=== PATIENT | female | born 1960 | race Caucasian/White ===

== ENCOUNTER 2017-01-28 14:26 | Emergency (ER) | payer OTHER ==
[~2017-01-28] VITALS: Ht 160 cm; Wt 47.2 kg
--- NOTE | ~2017-01-28 | CT2 ---
[facility] A Service of [facility] RADIOLOGY TEXT RESULTS PATIENT: SUSANNAH LUCAS LOCATION: [facility] : 60 UNIT #: [id number] AGE: [address]: Jomar Liu MD SEX: F ORDER DR: [id number] [facility] [address] [place], [place] [address] [id number] MR#: [id number] #: [id number] NAME: SUSANNAH LUCAS : 1960 SEX: F STUDY DATE/TIME: 01/28/2017 17:16 UNIT: [facility] ROOM: STUDY DESCRIPTION: CT Abd and Pelv W Cont Attending Physician: Jomar Liu M.D. Ordering Physician: Erica Sylvester M.D. Primary Care Physician: Kusum Jauregui [facility] MEDICAL IMAGING REPORT This report is preliminary unless electronic signature is present EXAM CT abdomen and pelvis with contrast HISTORY Abdominal pain nausea times 5 days and diarrhea, bloody stools. COMPARISON CT abdomen and pelvis 05/12/[address] exam was performed with one or more of the following radiation dose reduction techniques: automatic control, adjustment of mA and/or kV according to patient size, and iterative reconstruction. FINDINGS Axial images performed through the abdomen and pelvis following IV and oral contrast. Multiplanar reconstructed images reviewed at a workstation. ABDOMEN: Lung bases unremarkable. Liver, spleen, and gallbladder appear normal. Pancreas, kidneys and adrenal glands unremarkable. No free air or free fluid. The GI tract remarkable for mild colonic wall thickening involving the right colon, transverse colon and descending colon could reflect mild colitis. Probable involvement of the sigmoid colon as well. No obstruction. Retroperitoneum unremarkable. PELVIS: Bladder unremarkable. The uterus surgically absent. Osseous structures unremarkable. Incidental intramuscular lipoma right anterior pelvis. IMPRESSION Mild diffuse colonic wall thickening involving the entire colon could reflect a pancolitis possibly infectious in etiology. No perforation or obstruction. Patient does demonstrates scattered diverticula but no [facility] A Service [facility] RADIOLOGY TEXT RESULTS PATIENT: SUSANNAH LUCAS LOCATION: [facility] : 60 UNIT #: [id number] AGE: [address]: Jomar Liu MD SEX: F ORDER DR: evidence of diverticulitis. Dictated by... Shubham Aguirre M.D. THIS IS AN ELECTRONICALLY VERIFIED REPORT Shubham Aguirre M.D. at 01/29/2017 1:03 PM LASHAY/elina TD: 01/29/2017 01:02 JOB #: [id number] MEDICAL IMAGING REPORT Page 1 of 1 COPY
[2017-01-28 15:34] LABS: BASOPHIL# 0.1 X10e3 (0-0.3); BASOPHIL% 0.8 % (0-2.5); DIFF IND NO; EOSINOPHIL# 0.1 X10e3 (0-0.7); EOSINOPHIL% 0.6 % (0.0-7.0); HEMATOCRIT 57.2 % (35.0-45.0); HEMOGLOBIN 18.9 gm/dL (12.0-16.0); LYMPHOCYTE# 1.8 X10e3 (1.0-3.5); LYMPHOCYTE% 19.7 % (17.0-45.0); MEAN CELL VOLUME 101.6 FL (83-96); MEAN CORPUSCULAR HEMOGLOBIN 33.6 PG (28-34); MEAN PLATELET VOLUME 9.3 FL (6.5-11.5); MONOCYTE# 0.8 X10e3 (0-1.0); MONOCYTE% 8.4 % (3.0-12.0); NEUTROPHIL# 6.6 X10e3 (1.5-7.1); NEUTROPHIL% 70.5 % (40-75); PLATELET COUNT 264 X10e3 (140-420); RED BLOOD COUNT 5.62 X10e (3.90-5.30); RED CELL DISTRIBUTION WIDTH 15.1 % (11.0-15.5); WHITE BLOOD COUNT 9.3 X10e3 (4.0-10.5)
[2017-01-28 15:50] LABS: ALBUMIN SERUM 4.1 g/dL (3.5-5.0); BILIRUBIN, DIRECT 0.1 mg/dL (0.0-0.2); BILIRUBIN,INDIRECT 0.9 mg/dL (0.0-0.9); BUN/CREATININE RATIO 10.9; CALCIUM SERUM 9.2 mg/dL (8.4-10.2); CREATININE SERUM 1.1 mg/dL (0.6-1.4); GLOM FILT RATE Estimated 56.1 mL/min (>60); POTASSIUM 4.1 mmol/L (3.5-5.1); PROTEIN TOTAL SERUM 7.7 g/dL (6.0-8.3)
[2017-01-28 17:25] LABS: URINE SOURCE CLEAN CATCH
[2017-01-28 17:28] LABS: URINE APPEARANCE CLEAR; URINE BILIRUBIN NEG (NEG); URINE BLOOD NEG (NEG); URINE COLOR YELLOW; URINE GLUCOSE NEG (NEG); URINE KETONE NEG (NEG); URINE LEUKOCYTE ESTERASE NEG (NEG); URINE NITRATE NEG (NEG); URINE PH 7.5 (5-8); URINE PROTEIN NEG (NEG); URINE SPECIFIC GRAVITY 1.018 (1.003-1.035)
[2017-01-28 17:38] LABS: CULTURE INDICATED? NO
== END 2017-01-28 18:56 | disposition home or self-care (01) ==
LOC: CED 14:26
PROVIDERS: Student in an Organized Health Care Education/Training Program
DX: J44.9 Chronic obstructive pulmonary disease, unspecified (principal); G40.909 Epilepsy, unspecified, not intractable, without status epilepticus; Z90.89 Acquired absence of other organs; F17.200 Nicotine dependence, unspecified, uncomplicated; K52.9 Noninfective gastroenteritis and colitis, unspecified; Z88.5 Allergy status to narcotic agent; Z91.02 Food additives allergy status
CPT/HCPCS: 36415; 74177; 80048; 80076; 81003; 82150; 83690; 85025; 96374; 96375; 99284; C9113; J1170; J2405; Q9967